=== PATIENT | female | born 1965 | race Caucasian/White ===

== ENCOUNTER 2020-04-09 20:00 | Emergency (ER) | payer OTHER, MEDICAID ==
[~2020-04-09] VITALS: Ht 177.8 cm; Wt 99.8 kg
--- NOTE | ~2020-04-09 | EMS ---
[address] [place] [place] [address] EMS Patient Care Report Name: DIOR PEREZ [id number] Admission: 04/09/20 Attend Phys: Discharge: 04/09/20 Date of : 69 Report #: [id number] THIS REPORT FOR: //name// Report Transmitted: 04/11/2020 13:14 EMS Care Summary [facility] Incident [id number] @ 04/09/2020 19:21 Incident Location [address] [place], [place] [id number] Patient dior Perez Female, 54 Years 1965 Patient Address [address] [place], [place] [id number] Patient History Unspecified asthma,Anxiety disorder, unspecified,Other dorsalgia, Patient Allergies No known allergies, Patient Medications Oxycodone, Neurontin, Buspar, Tizanidine, Amitriptyline, Singulair, , Zyrtec, Chief Complaint Headache Disposition Transported No Lights/[place] [facility] Reason Headache Transported To [facility] Narrative Medic 322 was dispatched for a 911 call for headache. Medic 322 arrived on scene to find a female subject sitting in a chair waiting for the crew to arrive. the patient stated that she started having a headache about two in the afternoon. She also staetd that she was having some lightheadediness and [address] [place] [address] EMS Patient Care Report Name: DIOR PEREZ Room: [facility]#: [id number] Admission: 04/09/20 Attend Phys: Discharge: 04/09/20 Date of : 69 Report #: [id number] blurried vision with the headache but was not longer having those symptoms. The patient normally has headaches. Bhargavi Frazier started an assessment on the patient. Bhargavi Frazier assisted/ walked the patient to the [facility], and scured her using all the straps provided. The patient was transferred to the [facility] without difficulty. Bhargavi Frazier transported the patient to the ambulance using the litter. Once in the back of the ambulance Bhargavi Frazier continued her assessment on the patient. Lee Ann Wiley took a set of vitals on the patient about every ten to fifteen minutes. The patient rested on the litter during the transport. She wanted to be transported to [place]. Bhargavi Frazier arrived at [place] and transported the patient to her room using the litter. The patient slid herself over to the hospital bed. Bhargavi Frazier gave a verbal report to the nurse, and transferred patient care to the nurse. HIPAA was signed by the patient. Lee Ann Wiley EMT-P #[id number] Initial Vitals @19:38Pain: 01/04, @19:50Pain: 01/04, @19:38P: 92,R: 18,BP: 177/100, @19:50P: 92,R: 18,BP: 144/100, @19:38GCS: 15, @19:50GCS: 15, Assessments @19:31MENTAL:SKIN:HEENT:LUNG SOUNDS:ABDOMEN:PELVIS//GI:EXTREMITIES:PULSE:NEURO: Impression Headache Timeline 19:,Call Received 19:20,Dispatch Notified 19:20,Psap Call 19:,Dispatched 19:21,En Route 19:29,On Scene 19:31,At Patient 19:38,Depart Scene 19:38,BP: / M,PULSE: ,RR: R,SPO2: Ox,ETCO2: ,BG: ,PAIN: 10,GCS: , 19:38,BP: 177/100 M,PULSE: 92,RR: 18 R,SPO2: Ox,ETCO2: ,BG: ,PAIN: ,GCS: , 19:38,BP: / M,PULSE: ,RR: R,SPO2: Ox,ETCO2: ,BG: ,PAIN: ,GCS: 15, 19:50,BP: 144/100 M,PULSE: 92,RR: 18 R,SPO2: Ox,ETCO2: ,BG: ,PAIN: ,GCS: , 19:50,BP: / M,PULSE: ,RR: R,SPO2: Ox,ETCO2: ,BG: ,PAIN: ,GCS: 15, 19:50,BP: / M,PULSE: ,RR: R,SPO2: Ox,ETCO2: ,BG: ,PAIN: 10,GCS: , 19:58,[place] [address] EMS Patient Care Report Name: DIOR PEREZ [id number] Admission: 04/09/20 Attend Phys: Discharge: 04/09/20 Date of : 69 Report #: [id number] 20:07,Call Closed Disclaimer [email or web address] Copyright 2020 [employer] This EMS Care Summary contains data elements from the applicable legal record (which may be displayed differently). It is designed to provide pertinent information for the following purposes: continuity of care, clinical quality, and state data reporting. The complete legal record is available to ED staff and administrators of the receiving hospital in [employer] Patient Tracker. All data is provided "as is."
[~2020-04-09 20:00] MED LIST: ALBUTEROL INH; ALBUTEROL NEB; ASPIRIN325; BACTRIM DS TAB1 EACH PO; BENADRYL25 MG PO; BUSPAR PO; CARISOPRODOL 3350 MG PO; CELEBREX 200 M200 MG; DOLOPHINE HCL10 MG PO; EFFEXOR37.5 MG PO; EFFEXOR75 MG PO; LORTAB 5 MG/5001 TAB PO; MOBIC7.5 M1 PO; NEURONTIN600 MG PO; NORCO 5-325 TA1 EACH PO; PERCOCET 10-321 EACH PO; PREDNISONE 10 M10 MG PO; PREDNISONE50 MG PO; PRISTIQ100 MG PO; PROVENTIL IH; ROBAXIN 750 MG750 MG PO; ROXICODONE; SINGULAIR 10 MG10 M1 PO; ULTRACET TABLE1 EACH PO; VALIUM5 MG PO
[2020-04-09] MEDS ORDERED: BUSPIRONE HCL10 MG PO (20:05)
[2020-04-09] MEDS ORDERED: LEVO-T25 MCG PO (20:05)
[2020-04-09] MEDS ORDERED: TIZANIDINE HCL4 M1 PO (20:05)
[2020-04-09] MEDS ORDERED: AMITRIPTYLINE100 MG PO (20:06)
[2020-04-09] MEDS ORDERED: ZOLOFT50 M1 PO (20:06)
[2020-04-09 20:35] LABS: ABSOLUTE BASOPHILS 0.1 thou/uL (0.0-0.2); ABSOLUTE EOSINOPHILS 0.2 thou/uL (0.0-0.7); ABSOLUTE LYMPHOCYTES 2.6 thou/uL (0.8-5.3); ABSOLUTE MONOCYTES 0.5 thou/uL (0.0-1.2); ABSOLUTE NEUTROPHILS 4.6 thou/uL (1.6-8.1); EOSINOPHILS 2.9 %; HEMATOCRIT 37.9 % (37.0-47.0); HEMOGLOBIN 12.4 gm/dL (12.0-15.0); LYMPHOCYTES 32.2 %; MCH 28.9 pg (26.0-34.0); MCHC 32.8 g/dL (28.0-37.0); MCV 88.3 fL (80.0-100.0); MONOCYTES 5.9 %; MPV 7.9 fl. (7.2-11.1); NUCLEATED RBCS 0 /100WBC; PLATELET COUNT* 240 thou/uL (150-400); RDW-CV 12.9 % (10.5-14.5)
[2020-04-09 20:43] LABS: CALCIUM 8.9 mg/dL (8.5-10.1); CREATININE 1.2 mg/dL (0.6-1.3); POTASSIUM 4.2 mmol/L (3.5-5.1)
[2020-04-09 20:48] LABS: ALBUMIN 3.7 g/dL (3.4-5.0); TOTAL BILIRUBIN 0.5 mg/dL (<0.1-1.0); TOTAL PROTEIN 7.4 g/dL (6.4-8.2)
[2020-04-09 21:10] LABS: ACETAMINOPHEN < 2 ug/mL (10-30); SALICYLATE < 2.8 mg/dL (2.8-20.0)
[2020-04-09 21:19] LABS: URINE BILIRUBIN NEGATIVE (Negative); URINE BLOOD NEGATIVE (Negative); URINE CLARITY CLEAR; URINE COLOR YELLOW; URINE GLUCOSE-RANDOM NEGATIVE (Negative); URINE KETONES NEGATIVE (Negative); URINE LEUKOCYTES-REFLEX 1+ (Negative); URINE NITRITE-REFLEX NEGATIVE (Negative); URINE PROTEIN NEGATIVE (Negative); URINE SPECIFIC GRAVITY <= 1.005 (1.005-1.030); URINE UROBILINOGEN 0.2 E.U./dl (0.2-1.0)
[2020-04-09 21:31] LABS: AMP/METHAMP Negative (Negative); BARBITURATES Negative (Negative); BENZODIAZEPINES Negative (Negative); COCAINE Negative (Negative); METHADONE Negative (Negative); OPIATES Negative (Negative); PCP Negative (Negative); THC Negative (Negative)
[2020-04-09 21:32] LABS: MUCUS None Seen strn/LPF (None Seen); SQUAMOUS >10 Many /LPF (0-3); URINE WBC-REFLEX 6-15 Few /HPF (0-5)
[2020-04-09 21:33] LABS: BACTERIA-REFLEX 1-9 Few /HPF (None Seen); CASTS None Seen /LPF (None Seen); CRYSTALS None Seen /LPF (None Seen); URINE RBC 0-2 Rare /HPF (0-2)
[2020-04-09] MEDS ORDERED: IBUPROFEN 800800 MG PO (22:50)
[2020-04-09 23:09] VITALS: BP 130/78
== END 2020-04-09 23:09 | disposition home or self-care (01) ==
LOC: M.ERS 20:00
PROVIDERS: Personal Emergency Response Attendant
DX: G44.40 Drug-induced headache, not elsewhere classified, not intractable (principal); T39.95XA Adverse effect of unspecified nonopioid analgesic, antipyretic and antirheumatic, initial encounter; J45.909 Unspecified asthma, uncomplicated; Z90.710 Acquired absence of both cervix and uterus; Z79.899 Other long term (current) drug therapy; Z79.82 Long term (current) use of aspirin; Z88.2 Allergy status to sulfonamides; Z88.8 Allergy status to other drugs, medicaments and biological substances; Y92.89 Other specified places as the place of occurrence of the external cause

== ENCOUNTER 2020-06-30 17:30 | Emergency (ER) | payer OTHER, MEDICAID ==
[~2020-06-30] VITALS: Ht 177.8 cm; Wt 97.5 kg
[~2020-06-30 17:30] MED LIST changes: +AMITRIPTYLINE100 MG PO; +BUSPIRONE HCL10 MG PO; +IBUPROFEN 800800 MG PO; +LEVO-T25 MCG PO; +TIZANIDINE HCL4 M1 PO; +ZOLOFT50 M1 PO
[2020-06-30] MEDS ORDERED: CENTANY30 GM TOP ×2 (18:07→18:18)
[2020-06-30] MEDS ORDERED: NYSTATIN 100,0015 G1 TOP ×2 (18:07→18:18)
[2020-06-30] MEDS ORDERED: DOXYCYCLINE 10100 MG PO ×2 (18:07→18:18)
[2020-06-30 18:24] VITALS: BP 134/84
== END 2020-06-30 18:25 | disposition home or self-care (01) ==
LOC: M.ERS 17:30
DX: B37.9 Candidiasis, unspecified (principal); Z22.322 Carrier or suspected carrier of Methicillin resistant Staphylococcus aureus; J45.909 Unspecified asthma, uncomplicated; Z88.2 Allergy status to sulfonamides; Z88.8 Allergy status to other drugs, medicaments and biological substances; Z90.710 Acquired absence of both cervix and uterus

== ENCOUNTER 2020-08-17 22:29 | Emergency (ER) | payer OTHER, MEDICAID ==
[~2020-08-17] VITALS: Ht 175.3 cm; Wt 99.8 kg
[~2020-08-17 22:29] MED LIST changes: +CENTANY30 GM TOP; +DOXYCYCLINE 10100 MG PO; +NYSTATIN 100,0015 G1 TOP
[2020-08-18 01:28] VITALS: BP 135/80
== END 2020-08-18 01:29 | disposition home or self-care (01) ==
LOC: M.ERS 22:29
DX: R51.9 Headache, unspecified (principal); J45.909 Unspecified asthma, uncomplicated; Z90.710 Acquired absence of both cervix and uterus; Z86.14 Personal history of Methicillin resistant Staphylococcus aureus infection; Z88.8 Allergy status to other drugs, medicaments and biological substances; Z88.2 Allergy status to sulfonamides